=== PATIENT | male | born 1975 | race Caucasian/White ===

== ENCOUNTER 2016-04-26 14:03 | Emergency (ER) | payer OTHER ==
[2016-04-26] MEDS ORDERED: ASPIRIN 325 MG TABLET.DR PO ONE (14:25)
[2016-04-26 14:44] LABS: Hematocrit 45.6 % (42.0-52.0); Hemoglobin 15.5 gm/dL (13.5-18.0); Mean Cell Volume 89.4 fl (78-100); Mean Corpuscular Hemoglobin 30.4 pg (27-31); Mean Platelet Volume 9.1 fl (6.0-9.5); Neutrophil # 3.1 K/mm3 (1.3-6.0); Neutrophil % 59.2 % (42-75.0); Platelet Count 239 K/mm3 (150-450); White Blood Count 5.3 K/mm3 (4.0-10.5)
[2016-04-26] MEDS ORDERED: ASPIRIN 325 MG TABLET.DR ONE (15:02)
[2016-04-26 15:06] LABS: INR 1.06 INR (0.90-1.10); Partial Thrombolplastin Time 30.6 Seconds (24-32)
[2016-04-26 15:11] LABS: ALT 36 U/L (19-67); AST 17 U/L (0-48); Albumin * 4.1 gm/dl (3.4-5.0); Alkaline Phosphatase * 72 U/L (50-170); BUN/Creatinine Ratio 13.2 (9.0-21.6); Bilirubin, Total 0.6 mg/dL (0.0-1.1); Blood Urea Nitrogen 12 mg/dL (6-23); Ca. Corrected For Albumin 8.8 mg/dL (8.4-10.2); Calcium * 9.2 mg/dL (7.9-10.9); Carbon Dioxide 26.3 mmol/L (24-32.6); Chloride 103 mmol/L (97-106); Glucose * 112 mg/dL (70-110); Potassium 4.3 mmol/L (3.4-4.6); Sodium 140 mmol/L (132-142); Total Protein 7.5 gm/dL (6.2-8.2)
[2016-04-26] MEDS ORDERED: FAMOTIDINE 10 MG/ML VIAL IV ONE ×2 (15:16→15:29)
--- NOTE | 2016-04-26 15:23 | ERNOTE ---
Chest Pain/Cardiac HPI Date of Service: 04/26/16 Chief Complaint: Chest Pain Time Seen by Provider: 04/26/16 14:22 Source: patient Exam Limitations: no limitations Immunizations: IMMUNIZATION HX Immunizations Up to Date Yes Allergies/Adverse Reactions: Allergies No Known Allergies Allergy (Unverified 04/26/16 14:19) Home Medications: HOME MEDICATIONS Omeprazole [Prilosec] 20 mg PO DAILY #30 cap 04/26/16 [Last Taken Unknown] Ranitidine HCl [Zantac] 150 mg PO BID #60 tab 04/26/16 [Last Taken Unknown] Narrative: Patient comes due to a mid chest pain that goes up and down. Patient reported some dizziness with this chest pain. Timing: intermittent Severity/Quality: mild Location: central, epigastric Chest Pain Radiation: no radiation Activities at Onset: none Modifying Factors - Improves: Present: nothing Modifying Factors - Worsens: Present: nothing Aspirin Treatment Today: no aspirin today Associated Symptoms: Present: dizziness, abdominal pain - epigastric. Absent: headache, syncope, cough, shortness of breath, diaphoresis, palpitations, weakness Prior Chest Pain/Cardiac Workup: Denies: prior chest pain Prior Treatment: Denies: recently seen Review of Systems - Review of Systems Constitutional: Present: no symptoms reported EYE: Present: no symptoms reported ENT: Present: no symptoms reported Respiratory: Present: no symptoms reported Cardiology: Present: chest pain Gastrointestinal/Abdominal: Present: abdominal pain - epigastric pain / burning. Absent: nausea, vomiting, diarrhea Genitourinary: Present: no symptoms reported Musculoskeletal: Present: no symptoms reported Skin: Present: no symptoms reported Neurological: Present: no symptoms reported Endocrine: Present: no symptoms reported Hematologic/Lymphatic: Present: no symptoms reported Psych: Present: no symptoms reported - Patient's Past Medical History Patient History - Medical: No pertinent hx Patient History - Cancer: No Hx of Cancer Patient History - Surgical Procedures: Cholecystectomy, Other - Social History Smoking Status: Former smoker Physical Exam - Physical Exam General Appearance: Present: wd/wn, alert, no apparent distress Eye Exam: Normal inspection: bilateral, PERRL: bilateral, EOMI: bilateral Ears, Nose, Throat: Present: normal ENT inspection, hearing grossly normal, normal pharynx Neck: Present: normal inspection, nontender Respiratory: Present: no respiratory distress, normal breath sounds, no accessory muscle use, chest nontender, lungs clear Cardiovascular/Chest: Present: regular rate, rhythm, no murmur, normal peripheral pulses Peripheral Pulses: N=norm/S=strong/W=weak/B=bound/A=absent: Carotid (R): Normal , Carotid (L): Normal, Radial (R): Normal, Radial (L): Normal, Femoral (R): Normal, Femoral (L): Normal Gastrointestinal/Abdominal: Present: normal bowel sounds, nontender, nondistended, soft, no organomegaly Back Exam: Present: normal inspection, normal range of motion, no CVA tenderness , no vertebral tenderness Extremity Exam: Present: normal inspection, non-tender, no edema, normal range of motion Neurological Exam: Present: alert, oriented, normal mood/affect, no motor/ sensory deficits DTR: N=norm/NB=norm/brisk/A=abs/DD=dull/dimin/HC=hyperactive: Bicep (R): Normal , Bicep (L): Normal, Knee (R): Normal, Knee (L): Normal Skin Exam: Present: normal color, warm/dry Lymphatic Exam: Present: no adenopathy ED Progress - Date and Time Seen: Date and Time: 04/26/16 15:21 Patient at the moment with no distress. Patient will be done CTA of the Chest 04/26/16 16:38 Patient at the moment wit a YANIRA Score of 0, negative CTA for PE, No ST Elevation and CP improvement. Patient will be given Tx for GERD and will follow up with his PCP. At this point patient with no evidence of RI and a Low Probability for ACS. - Results and Orders Patient's Lab Results:: I have reviewed the patient's lab results. - Vital Signs Patient's Vital Signs:: I have reviewed the patient's vital signs. Vital Signs: Vital Signs 04/26/16 14:14 Pulse Rate 92 Respiratory 16 Rate Blood Pressure 134/85 O2 Sat by Pulse 91 Oximetry - EKG EKG: NSR, no ST T wave changes EKG Comments: No ST Elevation, HR: 93 - X-Ray X-Ray #2 X-Ray: chest X-ray Comments: Patient with abnormal findings. Changes in aorta and lung parenchyma must be evaluated due to chest pain - Progress/Reassessment Chief Complaint: Chest Pain Progress:: Improved - Transfer of Care Expected Disposition: Discharge Departure - Departure Clinical Impression: GERD without esophagitis Chest pain Qualifiers: Chest pain type: unspecified Qualified Code(s): R07.9 - Chest pain, unspecified Disposition: Home self-care Condition: Stable Instructions: Chest Wall Pain, Heartburn Prescriptions: Omeprazole [Prilosec] 20 mg PO DAILY #30 cap Ranitidine HCl [Zantac] 150 mg PO BID #60 tab
[2016-04-26 15:41] VITALS: BP 116/71
[2016-04-26 16:54] LABS: Troponin I Less than 0.017 ng/ml (0.00-0.10)
== END 2016-04-26 16:58 | disposition home or self-care (01) ==
LOC: ER 14:03
DX: K21.9 Gastro-esophageal reflux disease without esophagitis (principal); Z87.891 Personal history of nicotine dependence; Z90.49 Acquired absence of other specified parts of digestive tract

== ENCOUNTER 2020-01-23 03:26 | Inpatient (IN) ==
[2020-01-23] MEDS: FLECAINIDE ACETATE 100 MG TABLET PO SCH ×2 (10:43→20:19)
[2020-01-23] MEDS: ACETAMINOPHEN 500 MG TABLET PO PRN (15:04)
[2020-01-23] MEDS ORDERED: predniSONE 20 MG TABLET PO ONE (15:31)
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
[2020-01-23] MEDS: predniSONE 20 MG TABLET PO SCH (16:15)
[2020-01-23] MEDS: IBUPROFEN 400 MG TABLET PO PRN (20:19)
[2020-01-24] MEDS: ACETAMINOPHEN 500 MG TABLET PO PRN ×3 (00:14→21:37)
[2020-01-24] MEDS: IBUPROFEN 400 MG TABLET PO PRN ×3 (06:31→23:59)
[2020-01-24] MEDS ORDERED: ENOXAPARIN SODIUM 40 MG/0.4 ML SYRG SC SCH (08:45)
[2020-01-24 09:36] LABS: Hematocrit 41.1 % (42.0-52.0); Hemoglobin 13.8 gm/dL (13.5-18.0); Mean Cell Volume 90.9 fl (78-100); Mean Corpuscular Hemoglobin 30.5 pg (27-31); Mean Corpuscular Hgb Conc 33.6 g/dl (32-36); Platelet Count 225 K/mm3 (150-450); Red Blood Count 4.52 M/mm3 (4.7-6.0); Red Cell Distribution Width 12.4 % (11.5-14.0); White Blood Count 9.8 K/mm3 (4.0-10.5)
[2020-01-24] MEDS: predniSONE 20 MG TABLET PO SCH (10:01)
[2020-01-24] MEDS: FLECAINIDE ACETATE 100 MG TABLET PO SCH ×2 (10:01→21:37)
[2020-01-24] MEDS: ENOXAPARIN SODIUM 40 MG/0.4 ML SYRG SC SCH (21:38)
--- NOTE | 2020-01-24 23:33 | PN ---
Subjective - Date and Time Seen Date: 01/24/20 Time: 16:15 Subjective Narrative: Patient with acute hypoxia and tachycardia early this morning requiring nonrebreather mask He was also febrile @ 39.2 XR ordered which showed LLL infiltrate but WBC and procalcitonin unremarkable for bacterial infection. No abx started at this time as patients symptoms have not changes. COugh is still non productive and he states he is breathing well when seen this afternoon. Objective - Review of Systems Generalized/Overall Review: Reports: Fever. Denies: Weakness, Chills EENTM: Reports: Throat Pain Respiratory: Reports: Cough, Shortness of Breath Cardiac: Reports: No Symptoms Reported Abdominal: Reports: No Symptoms Reported Genitourinary Symptoms: Reports: No Symptoms Reported Musculoskeletal Complaints: Reports: Other - body aches Neurological: Reports: No Symptoms Reported Skin: Reports: No Symptoms Reported Endocrine: Reports: No Symptoms Reported - Vitals Vitals: Last Vital Signs Temp 39.0 C H 01/24/20 21:45 Pulse 112 H 01/24/20 21:45 Resp 24 H 01/24/20 21:45 BP 145/81 H 01/24/20 21:45 Pulse Ox 91 L 01/24/20 21:45 - Abnormal Lab Findings Abnormal Lab Findings: Abnormal Lab Results 01/24/20 Range/Units 09:26 RBC 4.52 L (4.7-6.0) M/mm3 Hct 41.1 L (42.0-52.0) % Immature Gran % (Auto) 0.50 H (0.001-0.429) % Immature Gran # (Auto) 0.05 H (0.000-0.0310) K/mm3 Neutrophils % 81.0 H (42-75.0) % Lymphocytes % 11.5 L (20-51) % Neutrophils # 8.0 H (1.3-6.0) K/mm3 Lymphocytes # 1.13 L (1.5-3.5) k/mm3 - Exam Constitutional: Present: Alert, Oriented x3, Cooperative, Well nourished, No distress ENT Exam: Present: pharyngeal erythema Respiratory: Present: no respiratory distress, decreased breath sounds - LLL, other - NC in place. Absent: crackles, wheezing Skin Exam: Present: normal color, warm/dry Appearance: Present: appropriate appearance, appropriate insight Eye contact: Present: cooperative, good eye contact Thoughts: Present: normal thought pattern, normal mood /affect Assessment/Plan Plan Narrative: Patient did de-sat early this morning but this resolved, he has been stable ever since. HR returned to normal and his temp stabilized with tylenol. Lovenox started BID. Patient comfotable this evening when evaluated. States he feels well. Patient agrees that he needs to stay here until his early mornings improve and his o2 stays in a normal range as he likely would have been in trouble at home with out the nonrebreather mask being used at 10 L to help him return to better range. Continue tylenol for aches and fevers. Will repeat CBC in the am to monitor WBC. Again, concern for superimposed PNA but clinically he does not look like this is the case and so no abx started. Procalcitonin wnl today. Continue with reg diet. On lovenox 40 mg BID. Check BMP in the am to monitor kidney function. Nurse to call with questions or concerns. - Problems/Diagnosis (1) COVID-19 virus infection Problem: Acute (2) Hypoxia Problem: Acute (3) Fever Problem: Acute
[2020-01-25] MEDS: ACETAMINOPHEN 500 MG TABLET PO PRN (05:39)
[2020-01-25 07:04] LABS: Hematocrit 39.4 % (42.0-52.0); Mean Platelet Volume 9.2 fl (8-11.3); Neutrophil # 11.3 K/mm3 (1.3-6.0); Neutrophil % 82.5 % (42-75.0); Platelet Count 243 K/mm3 (150-450); Red Blood Count 4.33 M/mm3 (4.7-6.0); Red Cell Distribution Width 12.4 % (11.5-14.0); White Blood Count 13.8 K/mm3 (4.0-10.5)
[2020-01-25 07:14] LABS: Anion Gap 13.2 mmol/L (6.8-13.8); BUN/Creatinine Ratio 12.2 (9.0-21.6); Calcium * 9.1 mg/dL (7.9-10.9); Carbon Dioxide 27.6 mmol/L (24-32.6); Estimated Creat Clear 122.4; Potassium 3.8 mmol/L (3.4-4.6)
[2020-01-25] MEDS: FLECAINIDE ACETATE 100 MG TABLET PO SCH ×2 (09:35→22:06)
[2020-01-25] MEDS: predniSONE 20 MG TABLET PO SCH (09:36)
[2020-01-25] MEDS: ENOXAPARIN SODIUM 40 MG/0.4 ML SYRG SC SCH ×2 (09:37→22:06)
[2020-01-25] MEDS: IBUPROFEN 400 MG TABLET PO PRN ×2 (11:12→22:06)
[2020-01-25] MEDS: ACETAMINOPHEN 500 MG TABLET PO SCH ×2 (13:33→19:33)
--- NOTE | 2020-01-25 23:54 | PN ---
Subjective - Date and Time Seen Date: 01/25/20 Time: 13:00 Subjective Narrative: Reports fevers come and go and he believes he gets hypoxic with the fevers. He would like tylenol scheduled. He feels his breathing is a little better. Oxygen saturation dropped to 92% and he was titrated to 3lpm of oxygen. Objective - Vitals Vitals: Last Vital Signs Temp 36.4 C 01/25/20 22:04 Pulse 72 01/25/20 22:04 Resp 20 01/25/20 22:04 BP 107/61 01/25/20 22:04 Pulse Ox 92 L 01/25/20 22:04 - Abnormal Lab Findings Abnormal Lab Findings: Abnormal Lab Results 01/25/20 01/25/20 Range/Units 07:00 07:00 WBC 13.8 H D (4.0-10.5) K/mm3 RBC 4.33 L (4.7-6.0) M/mm3 Hgb 13.0 L (13.5-18.0) gm/dL Hct 39.4 L (42.0-52.0) % Immature Gran % (Auto) 0.70 H (0.001-0.429) % Immature Gran # (Auto) 0.10 H (0.000-0.0310) K/mm3 Neutrophils % 82.5 H (42-75.0) % Lymphocytes % 11.9 L (20-51) % Neutrophils # 11.3 H (1.3-6.0) K/mm3 Random Glucose 132 H (70-110) mg/dL - Exam Constitutional: Present: Alert, Oriented x3, Cooperative ENT Exam: Present: hearing grossly normal Respiratory: Present: lungs clear, normal breath sounds, no respiratory distress Cardiovascular/Chest: Present: regular rate, rhythm, no edema, no murmur Abdomen: Present: Normal bowel sounds, soft, nontender, nondistended Skin Exam: Present: normal color, warm/dry, no cyanosis Assessment/Plan Plan Narrative: Overall feeling better. He has been persistent about asking for tylenol every 8 hours. He can get a max of 4g daily, will schedule q6hr per his wishes. Wean from oxygen as able. No other changes made at this time. - Problems/Diagnosis (1) Acute respiratory failure with hypoxia Problem: Acute (2) COVID-19 virus infection Problem: Acute
[2020-01-26] MEDS: ACETAMINOPHEN 500 MG TABLET PO SCH ×4 (01:32→19:31)
[2020-01-26] MEDS: IBUPROFEN 400 MG TABLET PO PRN ×4 (04:42→23:49)
[2020-01-26] MEDS: ENOXAPARIN SODIUM 40 MG/0.4 ML SYRG SC SCH ×3 (07:42→22:20)
[2020-01-26] MEDS: predniSONE 20 MG TABLET PO SCH ×2 (07:42→08:06)
[2020-01-26] MEDS: FLECAINIDE ACETATE 100 MG TABLET PO SCH ×3 (07:45→22:22)
[2020-01-26] MEDS ORDERED: ALBUTEROL SULFATE/IPRATROPIUM 3 ML NEBU IH PRN (10:13)
[2020-01-26] MEDS ORDERED: ALBUTEROL SULFATE/IPRATROPIUM 3 ML NEBU IH ONE (10:13)
[2020-01-26] MEDS ORDERED: AZITHROMYCIN 250 MG TABLET PO ONE (10:16)
[2020-01-26] MEDS ORDERED: IPRATROPIUM/ALBUTEROL SULFATE 120 PUFF INHALER IH PRN (10:30)
[2020-01-26] MEDS ORDERED: IPRATROPIUM/ALBUTEROL SULFATE 120 PUFF INHALER IH ONE (10:30)
[2020-01-26] MEDS: LORATADINE 10 MG TABLET PO SCH (17:37)
--- NOTE | 2020-01-26 23:34 | PN ---
Subjective - Date and Time Seen Date: 01/26/20 Time: 11:00 Subjective Narrative: Reports breathing better. He has difficulty coughing up sputum. I turned off the oxygen while I talked and examined him. During that time he had no shortness of breath. His oxygen remained 93% on room air. I left him off oxygen, but after about 15 minutes he dropped to 88% and was placed back on oxygen. Objective - Vitals Vitals: Last Vital Signs Temp 37.0 C 01/26/20 22:17 Pulse 76 01/26/20 22:17 Resp 18 01/26/20 22:17 BP 111/57 01/26/20 22:17 Pulse Ox 93 01/26/20 22:17 - Exam Constitutional: Present: Alert, Oriented x3, Cooperative, Well nourished, No distress ENT Exam: Present: hearing grossly normal Respiratory: Present: lungs clear, normal breath sounds Cardiovascular/Chest: Present: regular rate, rhythm, no edema, no murmur Abdomen: Present: Normal bowel sounds, soft, nontender, nondistended Appearance: Present: appropriate appearance, appropriate insight Eye contact: Present: cooperative, good eye contact, normal speech Assessment/Plan Plan Narrative: Feeling better, but unable to wean from oxygen. Added cornet, combivent inhaler, and azithromycin to see if this will help clear sputum and decrease inflammation of the lungs. Continue to wean from oxygen. - Problems/Diagnosis (1) Acute respiratory failure with hypoxia Problem: Acute (2) COVID-19 virus infection Problem: Acute
[2020-01-27] MEDS: ACETAMINOPHEN 500 MG TABLET PO SCH ×4 (01:42→19:23)
[2020-01-27] MEDS: IBUPROFEN 400 MG TABLET PO PRN ×3 (05:42→22:34)
[2020-01-27] MEDS: predniSONE 20 MG TABLET PO SCH (09:09)
[2020-01-27] MEDS: FLECAINIDE ACETATE 100 MG TABLET PO SCH ×2 (09:09→22:33)
[2020-01-27] MEDS: AZITHROMYCIN 250 MG TABLET PO SCH (09:09)
[2020-01-27] MEDS: ENOXAPARIN SODIUM 40 MG/0.4 ML SYRG SC SCH ×2 (09:09→22:34)
[2020-01-27] MEDS: LORATADINE 10 MG TABLET PO SCH (09:09)
--- NOTE | 2020-01-27 22:06 | PN ---
Subjective - Date and Time Seen Date: 01/27/20 Time: 21:56 Subjective Narrative: Patient is much more comfortable now than he has been since being here. Desats some with movement but recovers quickly. Needs no more then 3L per NC for this. No fevers in last 24 hrs. Currently is on azithromycin and prednisone. States he is breathing better. Objective - Review of Systems Generalized/Overall Review: Denies: Weakness, Chills, Fever EENTM: Reports: No Symptoms Reported Respiratory: Reports: Shortness of Breath. Denies: Cough Cardiac: Reports: No Symptoms Reported Abdominal: Reports: No Symptoms Reported Musculoskeletal Complaints: Reports: No Symptoms Reported Skin: Reports: No Symptoms Reported Endocrine: Reports: No Symptoms Reported - Vitals Vitals: Last Vital Signs Temp 36.9 C 01/27/20 19:21 Pulse 76 01/27/20 19:21 Resp 18 01/27/20 19:21 BP 108/57 01/27/20 19:21 Pulse Ox 93 01/27/20 21:22 - Exam Constitutional: Present: Alert, Oriented x3, Cooperative, Obese ENT Exam: Present: hearing grossly normal Neck: Present: supple. Absent: non-tender Respiratory: Present: lungs clear, normal breath sounds Cardiovascular/Chest: Present: regular rate, rhythm, no murmur Skin Exam: Present: normal color, warm/dry Neurologic: Present: alert, normal mood/affect, oriented x 3 Appearance: Present: appropriate appearance, appropriate insight Eye contact: Present: cooperative, good eye contact Assessment/Plan Plan Narrative: Continue current tx plan. If patient does well overnight then discharge home tomorrow. Cont abx, steroids. Will continue to wean o2 as tolerated. Patient stable, on loevenox for DVT ppx. Reg diet ordered. Nurse to call with questions or concerns. Slight bump in his WBC, likely from prednisone. - Problems/Diagnosis (1) COVID-19 virus infection Problem: Acute (2) Hypoxia Problem: Acute (3) Fever Problem: Resolved
[2020-01-28] MEDS: ACETAMINOPHEN 500 MG TABLET PO SCH ×3 (01:34→12:18)
[2020-01-28] MEDS: IBUPROFEN 400 MG TABLET PO PRN (05:08)
[2020-01-28] MEDS: predniSONE 20 MG TABLET PO SCH (08:01)
[2020-01-28] MEDS: AZITHROMYCIN 250 MG TABLET PO SCH (08:01)
[2020-01-28] MEDS: FLECAINIDE ACETATE 100 MG TABLET PO SCH (08:01)
[2020-01-28] MEDS: ENOXAPARIN SODIUM 40 MG/0.4 ML SYRG SC SCH (08:01)
[2020-01-28] MEDS: LORATADINE 10 MG TABLET PO SCH (08:01)
--- NOTE | 2020-01-28 11:25 | DS ---
(1) COVID-19 virus infection Problem: Acute (2) Hypoxia Problem: Acute (3) Fever Problem: Resolved Date of Discharge:: 01/28/20 Hospital Course: 44-year-old male admitted to the hospital for COVID-19 infection. Patient initially was having hypoxic spells requiring nonrebreather mask to maintain sats above 90% but this stabilized over the last 2 days and patient has been able to maintain his sats while using 2 to 3 L of oxygen via nasal cannula prior to discharge. Patient does have oxygen at home for this. Patient has no other real past medical history. Patient was started on prednisone while here, this will be continued for another 3 days. Patient was also started on azithromycin due to concerning chest x-ray though patient's white blood count and procalcitonin was negative. Unlikely to have superimposed bacterial infection but he has been covered for this. Patient's cough is nonproductive. Patient shortness of breath significant improved and patient feeling much better. Patient does desat still with movement which should improve with time. Patient has been afebrile for the last 48 hours. Patient advised to quarantine for the neck 7 to 10 days. Patient to follow up with me in 2 weeks. Procedures Performed: none Results and Findings: Lab Pending Results 01/23/20 12:10: SARS-CoV-2 (PCR) Detected H 01/24/20 09:26: WBC 9.8, RBC 4.52 L, Hgb 13.8, Hct 41.1 L, MCV 90.9, MCH 30.5, MCHC 33.6, RDW 12.4, Plt Count 225, MPV 9.0, Immature Gran % (Auto) 0.50 H, Immature Gran # (Auto) 0.05 H, Neutrophils % 81.0 H, Lymphocytes % 11.5 L, Monocytes % 6.9, Eosinophils % 0.0, Basophils % 0.1, Nucleated RBC % 0.0, Neutrophils # 8.0 H, Lymphocytes # 1.13 L, Monocytes # 0.7, Eosinophils # 0.0, Absolute Basophils 0.0 01/24/20 09:26: Procalcitonin 0.46 01/25/20 07:00: WBC 13.8 H D, RBC 4.33 L, Hgb 13.0 L, Hct 39.4 L, MCV 91.0, MCH 30.0, MCHC 33.0, RDW 12.4, Plt Count 243, MPV 9.2, Immature Gran % (Auto) 0.70 H, Immature Gran # (Auto) 0.10 H, Neutrophils % 82.5 H, Lymphocytes % 11.9 L, Monocytes % 4.8, Eosinophils % 0.0, Basophils % 0.1, Nucleated RBC % 0.0, Neutrophils # 11.3 H, Lymphocytes # 1.64, Monocytes # 0.7, Eosinophils # 0.0, Absolute Basophils 0.0 01/25/20 07:00: Sodium 136, Plasma Sodium 137, Potassium 3.8, Chloride 99, Carbon Dioxide 27.6, Anion Gap 13.2, BUN 10, Creatinine 0.82, Est GFR (Non-Af Amer) 108, BUN/Creatinine Ratio 12.2, Random Glucose 132 H, Calcium 9.1 Discharge Location: Home Disposition: Home self-care Condition: Stable Discharge Activity: Activity as tolerated Discharge Diet: Low fat/chol Referrals: Sabino Gallo DO [Staff Physician] - Two Weeks Prescriptions (Any new or edited meds): predniSONE [Prednisone] 40 mg PO DAILY #6 tab Transmission Status: Pending to [facility] Azithromycin [Zithromax] 250 mg PO DAILY #3 tab Transmission Status: Pending to [facility] Complete Home Medications List: Complete Home Medication List: Flecainide Acetate 50 mg BID 01/23/20 guaiFENesin [Mucinex] 1,200 mg PO BID 01/23/20 Acetaminophen [Tylenol] 1,000 mg PO Q6H tablet 01/28/20 Azithromycin [Zithromax] 250 mg PO DAILY #3 tab 01/28/20 Ibuprofen [Motrin] 400 mg PO Q6H PRN tablet 01/28/20 predniSONE [Prednisone] 40 mg PO DAILY #6 tab 01/28/20
[2020-01-28 13:31] VITALS: BP 132/86
== END 2020-01-28 13:35 | disposition home or self-care (01) | DRG 177 ==
LOC: MS 03:26 → INTOOBSV 03:26 → MS 01-26 13:46
PROVIDERS: ADMIT Family Medicine; ATTEND Family Medicine